=== PATIENT | male | born 1955 | race Caucasian/White ===

== ENCOUNTER → 2018-04-24 | Outpatient (REF) ==
[~2018-04-24] MED LIST: PANTOPRAZOLE40 MG PO
== END ==
LOC: ZLAB.WCH 09:26
DX: Z01.89 Encounter for other specified special examinations (principal)

== ENCOUNTER → 2021-12-28 | Outpatient (REF) | LOC: COL.CARD 08:28 | DX: Z01.810 Encounter for preprocedural cardiovascular examination (principal) ==